=== PATIENT | male | born 1990 | race American Indian/Alaskan Native ===

== ENCOUNTER 2018-06-26 23:32 | Emergency (ER) | payer SELFPAY | END 2018-06-27 00:21 | disposition left against medical advice (07) | LOC: ED 23:32 ==

== ENCOUNTER 2019-04-21 21:25 | Emergency (ER) | payer SELFPAY ==
[2019-04-21 21:57] VITALS: BP 136/86
== END 2019-04-22 02:55 | disposition left against medical advice (07) ==
LOC: ED 21:25
DX: H92.02 Otalgia, left ear (principal); Z53.21 Procedure and treatment not carried out due to patient leaving prior to being seen by health care provider